=== PATIENT | male | born 1990 | race Caucasian/White ===

== ENCOUNTER 2017-09-24 14:33 | Emergency (ER) | payer BC ==
[~2017-09-24] VITALS: Ht 175.3 cm; Wt 77.1 kg
[~2017-09-24 14:33] MED LIST: CONCERTA27 MG
[2017-09-24] MEDS ORDERED: VENTOLIN HFA 1818 GM INH ×2 (14:46→17:09)
[2017-09-24 15:03] LABS: ABSOLUTE NEUTROPHILS 7.1 thou/uL (1.4-8.2); HEMATOCRIT 44.4 % (42.0-52.0); HEMOGLOBIN 15.7 gm/dL (14.0-18.0); LYMPHOCYTES 15.1 % (24.0-44.0); MCH 31.6 pg (26.0-34.0); MCHC 35.3 g/dL (28.0-37.0); MCV 89.7 fL (80.0-100.0); MONOCYTES 11.6 % (1.0-8.0); PLATELET COUNT 303 thou/uL (150-400); POLYS 63.3 % (36.0-66.0); RBC 4.96 mil/uL (4.50-6.00); RDW 12.6 % (10.5-14.5); WBC 11.2 thou/uL (4.0-11.0)
[2017-09-24 15:12] LABS: CALCIUM 9.5 mg/dL (8.5-10.1); POTASSIUM 4.1 mmol/L (3.5-5.1)
[2017-09-24] MEDS ORDERED: PREDNISONE 20 M20 MG PO (17:09)
[2017-09-24] MEDS ORDERED: TESSALON PERLE100 MG PO (17:09)
== END 2017-09-24 17:22 | disposition home or self-care (01) ==
LOC: ER 14:33
PROVIDERS: Nurse Practitioner Family
DX: J06.9 Acute upper respiratory infection, unspecified (principal); R06.00 Dyspnea, unspecified; Z87.891 Personal history of nicotine dependence